=== PATIENT | female | born 1945 | race Caucasian/White ===

== ENCOUNTER 2018-05-08 02:13 | Inpatient (IN) | payer OTHER, MEDICARE ==
[~2018-05-08] VITALS: Ht 170.2 cm; Wt 112.1 kg
[~2018-05-08 02:13] MED LIST: ARTHROTEC 75 M1 EACH PO; BISACODYL10 MG PR; BYSTOLIC2.5 M1 PO; BYSTOLIC5 M1 PO; COUMADIN 4MG TAB4 MG PO; DICLOFENAC SODI75 M2 PO; DOCUSATE SODIU100 M3 PO; DOCUSATE SODIU100 MG PO; ELIQUIS2.5 M1 PO; IRON TABS PO; LEVOTHYROXINE88 MCG PO; PERCOCET 325 MG1 TA2 PO; PERCOCET 5-3251 EACH PO; PRAVACHOL20 M2 PO; PRILOSEC OTC20 M1 PO; SENNA PLUS TAB1 EACH PO; SYNTHROID88 MCG PO; TRAMADOL HCL50 M1 PO; VITAMIN C500 M7 PO
--- NOTE | 2018-05-08 09:49 | Operative Report ---
Operative/Inv Procedure Report Surgery Date: 05/08/18 Name of Procedure: Right total hip arthroplasty Pre-Operative Diagnosis: Right hip osteoarthritis, primarily Post-Operative Diagnosis: Same with the final pathology pending Estimated Blood Loss: 50ml to 100ml Surgeon/Associate Professor Of English: Lina NORTON,Marek. RADHA Camacho Anesthesia: block Implants: Independence secure fit femoral stem size 7 with a 127 neck angle 52 acetabulum 36+0 femoral head Biolox Drains: None Specimens: Femoral head and acetabular reamings Microbiology: Urine Complications: None Condition: Stable Operative Indication: Patient is a 72-year-old woman with a history of gradually worsening right hip symptoms. She was diagnosed with osteoarthritis. Treatment included medications, activity modifications and even cortisone injection. She also underwent physical therapy. Unfortunately she had increasing symptoms that interfere with normal activities of daily living. X-rays confirmed end-stage degenerative changes of the right hip. Due to ongoing symptoms that interfere with normal activities, patient wished to proceed with total hip arthroplasty. Risks benefits and expectations of the surgical procedure were discussed which included but were not limited to persistent hip pain, need for subsequent surgery, infection, DVT, injury to blood vessel or nerve, leg length discrepancy , anesthesia risks Operative/Procedure Note Note: Patient was brought to the operating room and transferred to the operating table. Once under appropriate anesthesia the patient was placed into a left lateral decubitus position with right side up. All bony prominences were well- padded. The right lower extremity was prepped and draped in standard fashion. Preoperative IV antibiotic's were given prophylactically. A standard lateral incision was made for to a superior portion of the hip. Incision was taken down sharply to the underlying fascia. The fascia was split in line with the skin incision. The hip was internally rotated placing the piriformis on tension. The piriformis is identified and reflected posteriorly. Identified the interval between the gluteus minimus tendon and the superior capsule. A retractor was placed in this interval. An inferior retractor was placed as well exposing the inferior portion of the posterior capsule. A central portion of the capsule was incised and reflected posteriorly. Superior and inferior portions of the posterior capsule were excised. Hip was dislocated. Severe degenerative changes were noted. Measurements were taken. Femoral neck cut was then made a stab preoperative templating and intraoperative findings. I then was able to visualize the acetabulum. Degenerative changes of the acetabulum were noted as well. Degenerative labrum was excised circumferentially. Retractors were placed anteriorly and inferiorly exposing the acetabulum. Remnants of the soft tissues were removed from the acetabular fossa using large curette. Copious irrigation followed. I then started reaming with a size 46 and progressed to a size 51 for an anticipated insertion of size 52 acetabular shell. After the 51 reamer, I used a size 50 trial to confirm circumferential reaming. I was satisfied with this. After copious irrigation of the acetabular fossa, I impacted the definitive size 52 acetabular shell with the appropriate anteversion and abduction based on anatomy, preoperative templating x-rays and the Quosis tower. I was satisfied with the fixation. I did apply to cancellus screws in the safe zone in standard fashion. After irrigation of the acetabular shell I inserted the definitive liner to accept a 36+0 femoral head. This was impacted in place and the locking mechanism was confirmed. A lap sponge was placed in the acetabulum to protect the polyethylene during preparation of the femur. The femur was internally rotated 90 and flexed about 60. Appropriate retractors were placed and then I used the box osteotome to lateralize my insertion site. I hand reamed up to a size 7. I broached to a size 7. I left the last broach in place which was the 7 with excellent scratch fit. I did a closed reduction with a 127 neck angle and 36+0 femoral head. I was satisfied with the sikh of the length. Excellent stability with simultaneous flexion to greater than 90, internal rotation and adduction. No evidence of posterior instability. No evidence of anterior instability with simultaneous extension and external rotation. I removed the trial components from the femur. Copious irrigation of the femoral canal followed. I then inserted a definitive size 7 secure fit femoral stem with the appropriate version matching the previously placed and removed broach. Again excellent scratch fit. The trunnion was dried and the definitive 36+0 Biolox femoral head was impacted in place and the locking mechanism was confirmed. The hip was reduced and stability was confirmed once again. Copious irrigation followed and copious irrigation followed every level of closure. Capsule was repaired as was the piriformis. Fascia was closed with interrupted #1 Vicryl sutures. Subcutaneous tissues closed with 2-0 Vicryl due to the depth of the wound in 2 layers. Skin was closed with bravo. Blood loss approximate 100 mL. No intraoperative complications. Appropriate dressings were applied and patient was awakened and taken to recovery room in good condition. Discharge Disposition: PACU
--- NOTE | 2018-05-08 11:00 | Patient Discharge Instructions ---
Discharge Instructions General Discharge Information You were seen/treated for: primary osteoarthritis right hip You had these procedures: right total hip arthroplasty Watch for these problems: Increasing pain despite the use of pain medication Increasing redness, warmth or swelling Drainage of any type from incision Inability to bear weight on operative leg Persistent nausea and vomiting Fever greater than 101.5 degrees Other wound care: Please keep wound clean and dry. No ointments or lotions of any type on or near incision. Your dressing will be changed by your nurse. Daily dry dressing changes are recommended each day thereafter. Do not soak your wound- no tub baths/swimming. You may shower, change the dressing when wet. Diet Continue normal diet: Yes Recommended Diet: Regular Activity Activity Limited to: Weight bear as tolerated Additional ACTIVITY Info: use assistive devices as needed Acute Coronary Syndrome Inclusion Criteria At DC or during hospital stay patient has or had the following: ACS DIAGNOSIS No Discharge Core Measures Meds if any: Prescribed or Continued at Discharge Meds if any: NOT Prescribed or Continued at Discharge Congestive Heart Failure Inclusion Criteria At DC or during hospital stay patient has or had the following: CHF DIAGNOSIS No Discharge Core Measures Meds if any: Prescribed or Continued at Discharge Meds if any: NOT Prescribed or Continued at Discharge Cerebrovascular accident Inclusion Criteria At DC or during hospital stay patient has or had the following: CVA/TIA Diagnosis No Discharge Core Measures Meds if any: Prescribed or Continued at Discharge Meds if any: NOT Prescribed or Continued at Discharge Venous thromboembolism Inclusion Criteria VTE Diagnosis No VTE Type NONE VTE Confirmed by (Test) NONE Discharge Core Measures - Per Current guidelines, there needs to be overlap - treatment for the first 5 days of Warfarin therapy. - If discharged on Warfarin prior to 5 days of - overlap therapy, the patient will need to be - assessed for post discharge needs including - *Post discharge parental anticoagulation - *Warfarin and/or parental anticoagulation education - *Follow up date to check INR post discharge At least 5 days overlap therapy as Inpatient No Meds if any: Prescribed or Continued at Discharge Note: Overlap Therapy is Warfarin and Anticoagulant Meds if any: NOT Prescribed or Continued at Discharge
--- NOTE | 2018-05-08 11:03 | Surgical Discharge Summary ---
Visit Information Visit Dates Admission Date: 05/08/18 Discharge Date: 05/11/18 History of Present Illness Chief Complaint: right hip pain due to osteoarthritis Medical History Cardiovascular: hypertension, hyperlipidemia Gastrointestinal: GERD Musculoskeletal: osteoarthritis Endocrine: THYROID NODULES PARTIAL THYROIDECTOMY Cancer(s): NONE History of MRSA: No History of VRE: No History of CDIFF: No Pneumonia Vaccine: 07/12/12 Influenza Vaccine: 07/12/17 Surgical History Pertinent Surgical History: knee replacement, APPY PARTIAL THYROIDECTOMY RIGHT TOTAL KNEE RIGHT BREAST BIOPSY Psychosocial History Who Do You Live With? Spouse Services at Home: None What is Your Primary Language? Slovenian Review of Systems: see H&P Hospital Course Course Attending Physician: Marek Mills MD Primary Care Physician: Marcial Mary MD Hospital Course: Patient was admitted to the hospital for an elective right total hip replacement. Procedure was tolerated well and patient was transferred to a general surgical floor. Diet was advanced and tolerated. Physical therapy performed evaluation and treatment. At time of hospital discharge, vital signs were stable, neurovascular status was intact, and pain was controlled with the use of oral pain medications. Allergies: Coded Allergies: No Known Allergies (08/02/17) Significant Procedures: 05/08/18 right total hip arthroplasty Disposition Summary Disposition Principal Diagnosis: primary osteoarthritis right hip Additional Diagnosis: same, sp right total hip arthroplasty Discharge Disposition: home health services Discharge Instructions General Discharge Information Code Status: Full Code Patient's Diet: regular Patient's Activity: wbat Follow-Up Instructions/Appts: call to schedule/confirm followup appt to be seen 2 weeks from surgery Medications at Discharge Discharge Medications: Continue taking these medications: Levothyroxine Sodium (Synthroid) 88 MCG TABLET 1 Tablet ORAL [id number] Comments: Last Taken: 08/18/17 Time: 0800 Omeprazole Magnesium (Prilosec Otc) 20 MG TABLET.DR 1 Tablet ORAL DAILY Comments: Last Taken: 08/18/17 Time: 0800 Pravastatin Sodium (Pravachol) 20 MG TABLET 1 Tablet ORAL DAILY Comments: Last Taken: 08/17/17 Time: 1700 Nebivolol HCl (Bystolic) 5 MG TABLET 1 Tablet ORAL EVERY 48 HOURS (Every 2 days) Comments: Last Taken: 08/17/17 Time: 2200 Nebivolol HCl (Bystolic) 2.5 MG TABLET 1 Tablet ORAL EVERY 48 HOURS (Every 2 days) Comments: Last Taken: 08/16/17 Time: 2200 Levothyroxine Sodium (Levothyroxine Sodium) 88 MCG TABLET 0.5 Tablet ORAL EVERY TUESDAY Comments: NOT GIVEN Diclofenac W/ Misoprostol (Arthrotec 75 MG-200 Mcg Tab) 75 MG-200 MCG TAB.IR.DR 11 Tablet ORAL TWICE DAILY Tramadol HCl (Tramadol HCl) 50 MG TABLET 1 Tablet ORAL NEEDED Ascorbic Acid (Vitamin C) 500 MG CAPSULE.ER 1 Tablet ORAL Every Day [IRON TABS] 1 TAB 1 Tablet ORAL DAILY Start taking the following new medications: Apixaban (Eliquis) 2.5 MG TABLET 2.5 Milligram ORAL TWICE DAILY Qty = 60 No Refills Oxycodone HCl/Acetaminophen (Percocet 5-325 MG Tablet) 5 MG-325 MG TABLET 1-2 Tablet ORAL EVERY 4 HOURS NEEDED as needed for PAIN Qty = 36 No Refills
--- NOTE | 2018-05-08 13:07 | RADIOLOGY REPORT ---
EXAMINATION: XR HIP, RIGHT CLINICAL INFORMATION: Right hip arthroplasty COMPARISON: None TECHNIQUE: Portable, AP view of the right hip. FINDINGS: On this single AP view of the right hip, the femoral head prosthesis is well centered within the acetabular cup, which exhibits lateral tilt of approximately 35 degrees. The acetabular cup is stabilized by a superior screw. The femoral stem is well centered within the medullary cavity of the proximal femoral diaphysis. No evidence of endosteal cortical scalloping or periprosthetic fracture. Mild postoperative soft tissue gas of the lateral hip with lateral skin bravo in place. IMPRESSION: There are expected postoperative changes from right total hip arthroplasty. No acute periprosthetic fracture or malalignment.
--- NOTE | 2018-05-08 14:55 | PN- Student ---
Landen Rodriguezley 05/08/18 1435: Subjective Subjective: Went to see the pt post-op in the PACU. At this time, she is doing well. Pain is well controlled. Only complaint is some pain in her left shoulder which is likely d/t her postioning, ice pack was in place. Pt denies any n/v. Eldridge in place, voiding. Pt is tolerating some ice chips. Pt denies any numbness/tingling in her extremities. No other complaints at this time. Objective Objective: Gen: O&Ax3, laying in bed, comfortable, in no apparent distress Lungs: CTA Heart: RRR. S1 and S2 normal. Abd: soft, nt/nd, normoactive bs LE: sensation intact bilaterally, dp 2+ bilaterally, strength 4/5 bilaterally, ALPS in place, legs are warm,dry,soft, non-tender to palpation. compression stocking in place over right leg. Results Results: Microbiology Date/Time Procedure - Status Source Growth 05/08 1050 Urine Culture - RECD URINE ROUT Orders Procedure Date/time Status Code Status 05/08 1237 Active TRANSFER ORDERS 05/08 1227 Active PATHOLOGY SPECIMEN 05/08 1108 Complete CULTURE,URINE 05/08 1107 Active Microbiology Date/Time Procedure - Status Source Growth 05/08 1050 Urine Culture - RECD URINE ROUT Orders Procedure Date/time Status Code Status 05/08 1237 Active TRANSFER ORDERS 05/08 1227 Active PATHOLOGY SPECIMEN 05/08 1108 Complete CULTURE,URINE 05/08 1107 Active Microbiology 05/08 1050 URINE ROUT: Urine Culture - RECD Assessment/Plan Assessment: This is a 72 yo female with a PMHx of htn, hyperlipidemia, multinodular goiter s /p subtotal thyroidectomy that presents today w/ right hip osteoarthritis POD 0 s/p THR, seen in PACU and is in stable condition. Plan: -Eldridge in place, voiding, will d/c tomorrow -Ambulation, WBAT w/ PT -ALPS and Eliquis 2.5 twice daily for dvt ppx -Advance diet as tolerated -C/w IV fluids -IV abx given preop -Encourage spirometer -C/w home meds -Follow up morning labs -Pain control as ordered -Dressing change POD 2 -Discharge planning Darien Deleon 05/08/18 1646: Subjective Subjective: agree with above may be oob this evening to chair wbat right le
[2018-05-08 14:59] VITALS: BP 120/76
[2018-05-08 17:00] VITALS: BP 132/64
[2018-05-08 19:00] VITALS: BP 134/74
[2018-05-08 21:00] VITALS: BP 110/72
[2018-05-09 01:08] VITALS: BP 136/68
[2018-05-09 05:00] VITALS: BP 132/74
--- NOTE | 2018-05-09 07:17 | PN- Student ---
Krysten Rodriguez 05/09/18 07: Subjective Subjective: Went to see the pt this morning and she is doing well. Her left shoulder pain has resolved. Her hip pain is well controlled. She hasn't been oob yet or seen by PT. She is tolerating a reg diet, denies n/v. Good PO intake. Khalil still in place this morning, voiding ok. No flatus/BM since tuesday morning. Pt denies cp/ sob. Pt denies any numbness/tingling in her extremities. No other complaints at this time. Objective Objective: Gen: O&Ax3, laying in bed, comfortable, in no apparent distress Lungs: CTA Heart: RRR. S1 and S2 normal. Abd: soft, nt/nd, normoactive bs LE: sensation intact bilaterally, dp 2+ bilaterally, strength 5/5 bilaterally, ALPS in place, legs are warm,dry,soft, non-tender to palpation. Dressing in place- clear/dry/no drainage. Results Results: Vital Signs Date Time Temp Pulse Resp B/P B/P Pulse O2 O2 Flow FiO2 Mean Ox Delivery Rate 05/09 0500 98.3 85 18 132/74 94 Room Air 05/09 0108 98.3 75 18 136/68 93 Room Air 05/08 2108 92 110/78 08 2100 97.5 92 16 110/72 92 Room Air 05/08 1900 97.5 79 20 134/74 97 Room Air 05/08 1700 98.0 84 16 132/64 97 Room Air 05/08 1535 95 Room Air Room Air 05/08 1459 97.6 57 18 120/76 96 Room Air Room Air Microbiology Date/Time Procedure - Status Source Growth 05/08 1050 Urine Culture - RECD URINE ROUT Orders Procedure Date/time Status CBC WITHOUT DIFFERENTIAL 05/09 600 Active BASIC ELECTROLYTES PLUS BUN&CR 05/09 600 Active Regular Diet 05/08 D Active Device(s) 05/08 1500 Active Weight 05/08 145 Complete Teach/Educate 05/08 1459 Active Pain Treatment and Response 05/08 1459 Active Nutritional Intake, Monitor 05/08 1459 Active Isolation 05/08 1459 Active Intake & Output 05/08 1459 Active Patient Care Conference 05/08 1459 Active PT Evaluate & Treat 05/08 1452 Active Saline Lock 08/06 1452 Active Pathway - chart 08/06 1452 Active Admit to inpatient 05/08 1452 Active Patient Data 05/08 1452 Active Wound Care/Dressing 05/08 1452 Active VTE Mechanical Prophylaxis 05/08 1452 Active Vital Signs 05/08 1452 Active Heat/Cold Therapy 05/08 1452 Active Khalil, Insertion/Removal/Asses 05/08 1452 Active CMS- Neurovascular Checks 05/08 145 Active Activity/Ambulation 05/08 1452 Active Code Status 05/08 1237 Active TRANSFER ORDERS 05/08 1227 Complete PATHOLOGY SPECIMEN 05/08 1108 Complete CULTURE,URINE 05/08 1107 Active MISSING MEDICATION FORM 05/08 UNK Active Microbiology 05/08 1050 URINE ROUT: Urine Culture - RECD Assessment/Plan Assessment: This is a 72 yo female with a PMHx of htn, hyperlipidemia, multinodular goiter s /p subtotal thyroidectomy that presents today w/ right hip osteoarthritis POD 1 s/p right total hip arthroplasty, seen in at bedside this morning, pt is doing well. Plan: -dc Khalil -Will be seen by PT today -Ambulation, WBAT -ALPS and Eliquis 2.5mg twice daily for dvt ppx -Tolerating reg diet -dc IV fluids -IV abx complete -C/w home meds -AM labs pending -Pain control as ordered -Dressing change POD 2 -Discharge planning Dulce Petersen 05/09/18 0747: Assessment/Plan Assessment: Agree with student assessment and plan. Will dc khalil cathter and iv fluids. Eliquis to start this am. Will discuss poc with Dr. Mills
[2018-05-09 08:37] LABS: ABSOLUTE BASOPHIL COUNT 0 /CUMM (0.0-0.2); ABSOLUTE EOSINOPHIL COUNT 0 /CUMM (0.0-0.7); ABSOLUTE MONOCYTE COUNT 1.3 /CUMM (0.10-0.60); BASOPHIL % 0 % (0.0-2.0); EOSINOPHIL % 0 % (0-5)
[2018-05-09 08:53] LABS: ABSOLUTE GRANULOCYTE CT 12.4 /CUMM (1.4-6.5); ABSOLUTE LYMPH COUNT 0.7 /CUMM (1.2-3.4); HEMATOCRIT 34.4 % (37-47); MEAN CORPUSCULAR HGB 30.2 PG (27.0-31.0); MEAN CORPUSCULAR HGB CONC 33.3 G/DL (33.0-37.0); MEAN CORPUSCULAR VOLUME 90.8 FL (81.0-99.0); MEAN PLATELET VOLUME 10.9 FL (7.4-10.4); PLATELET COUNT 156 /CUMM (130-400); RED BLOOD CELL CT 3.79 /CUMM (4.20-5.40); WHITE BLOOD CELL COUNT 14.3 /CUMM (4.8-10.8)
[2018-05-09 09:36] LABS: GRANULOCYTE % 86.2 % (42.2-75.2)
--- NOTE | 2018-05-09 10:02 | Admission Core Measures ---
Acute Coronary Syndrome (CM) ACS Core Measures Acute Coronary Syndrome Diagnosis No Congestive Heart Failure (NEW) CHF Core Measures Congestive Heart Failure Diagnosis No Cerebrovascular Accident CVA Core Measures CVA/TIA Diagnosis No Venous Thromboembolism VTE Core Ashely (View Protocol) VTE Risk Factors Surgery No Mechanical VTE Prophylaxis d/t N/A MechProphylax Ordered No VTE Pharm Prophylaxis d/t NA PharmProphylax ordered Problem List As ranked by this Provider includes Assessment & Plan 1. Primary osteoarthritis of right hip HOME MEDS Home Med List Ascorbic Acid (Vitamin C) 500 MG CAPSULE.ER 1 TAB PO D SUPPLEMENT (Reported) Diclofenac W/ Misoprostol (Arthrotec 75 MG-200 Mcg Tab) 75 MG-200 MCG TAB.IR.DR 11 TAB PO BID DISCOMFORT (Reported) [IRON TABS] 1 TAB 1 TAB PO DAILY SUPPLEMENT (Reported) Levothyroxine Sodium (Synthroid) 88 MCG TABLET 1 TAB PO MoTuWeThFrSa THYROID (Reported) Levothyroxine Sodium 88 MCG TABLET 0.5 TAB PO QSUN THYROID (Reported) Nebivolol HCl (Bystolic) 5 MG TABLET 1 TAB PO Q48 BP (Reported) Nebivolol HCl (Bystolic) 2.5 MG TABLET 1 TAB PO Q48 BP (Reported) Omeprazole Magnesium (Prilosec Otc) 20 MG TABLET.DR 1 TAB PO DAILY GI ( Reported) Pravastatin Sodium (Pravachol) 20 MG TABLET 1 TAB PO DAILY CHOLESTEROL ( Reported) Tramadol HCl 50 MG TABLET 1 TAB PO PRN PAIN (Reported)
[2018-05-09 10:30] VITALS: BP 122/80
[2018-05-09 13:21] VITALS: BP 120/60
--- NOTE | 2018-05-09 19:02 | PN- Orthopedic ---
Surgical Brief Attending Note Brief Attending Note: sore VSS calf soft NT X2 neuro intact dressing dry s/p THR right PT/home needs anticoagulation
[2018-05-09 22:17] VITALS: BP 102/60
[2018-05-10 06:20] VITALS: BP 148/80
--- NOTE | 2018-05-10 06:39 | PN- Student ---
Krysten Rodriguez 05/10/18 0637: Subjective Subjective: Went to see the pt this morning and she is doing well. Her hip pain is well controlled at rest, some slight pain when ambulating. She has been oob and evaluted twice by PT yesterday. She is tolerating a reg diet, denies n/v. Good PO intake. IV fluids and khalil were stopped yesterday, she is voiding on her own. Passed flatus, no BM since tuesday morning. Pt denies cp/sob. Pt denies any numbness/tingling in her extremities. No other complaints at this time. Objective Objective: Physical exam Gen: O&Ax3, laying in bed, comfortable, in no apparent distress Lungs: CTA Heart: RRR. S1 and S2 normal. Abd: soft, nt/nd, normoactive bs LE: sensation intact bilaterally, dp 2+ bilaterally, strength 5/5 bilaterally, ALPS in place, adductor brace in place, legs are warm,dry,soft, non-tender to palpation. Dressing in place- clear/dry/no drainage. Changed today. Results Results: Vital Signs Date Time Temp Pulse Resp B/P B/P Pulse O2 O2 Flow FiO2 Mean Ox Delivery Rate 05/09 2217 98.1 72 20 102/60 99 05/09 1321 99.0 79 20 120/60 97 Room Air 05/09 1030 98.3 96 20 122/80 97 Room Air 05/09 0500 98.3 85 18 132/74 94 Room Air 05/09 0108 98.3 75 18 136/68 93 Room Air 05/08 2108 92 110/78 08/ 2100 97.5 92 16 110/72 92 Room Air 05/08 1900 97.5 79 20 134/74 97 Room Air / 1700 98.0 84 16 132/64 97 Room Air 05/08 1535 95 Room Air Room Air 05/08 1459 97.6 57 18 120/76 96 Room Air Room Air Microbiology Date/Time Procedure - Status Source Growth 05/08 1050 Urine Culture - RES URINE ROUT Orders Procedure Date/time Status CBC WITHOUT DIFFERENTIAL 05/09 600 Complete BASIC ELECTROLYTES PLUS BUN&CR 05/09 600 Complete Therapeutic Activities 05/09 UNK Complete Therapeutic Exercise 05/09 UNK Complete PT EVAL LOW COMPLEX 20 MIN 05/09 UNK Complete Gait Training 05/09 UNK Complete Discontinue Nursing Interventi 05/09 UNK Active Regular Diet 05/08 D Active Device(s) 05/08 1500 Active Weight 05/08 145 Complete Teach/Educate 05/08 145 Active Pain Treatment and Response 05/08 145 Active Nutritional Intake, Monitor 05/08 145 Active Isolation 05/08 145 Active Intake & Output 05/08 1459 Active Patient Care Conference 05/08 145 Active PT Evaluate & Treat 05/08 145 Active Saline Lock 05/08 145 Active Pathway - chart 05/08 145 Active Admit to inpatient 05/08 145 Active Patient Data 05/08 145 Active Wound Care/Dressing 05/08 145 Active VTE Mechanical Prophylaxis 05/08 145 Active Vital Signs 05/08 145 Active Heat/Cold Therapy 05/08 145 Active Khalil, Insertion/Removal/Asses 05/08 145 Complete CMS- Neurovascular Checks 05/08 145 Active Activity/Ambulation 05/08 145 Active Code Status 05/08 1237 Active TRANSFER ORDERS 05/08 1227 Complete PATHOLOGY SPECIMEN 05/08 1108 Complete CULTURE,URINE 05/08 110 Active MISSING MEDICATION FORM 05/08 UN Active Laboratory Tests 05/09/18 0620: Anion Gap 6, Estimated GFR > 60, BUN/Creatinine Ratio 28.3 H, CBC w Diff NO MAN DIFF REQ, RBC 3.79 L, MCV 90.8, MCH 30.2, MCHC 33.3, RDW 14.0, MPV 10.9 H, Gran % 86.2 H, Lymphocytes % 4.9 L, Monocytes % 8.9, Eosinophils % 0, Basophils % 0, Absolute Granulocytes 12.4 H, Absolute Lymphocytes 0.7 L, Absolute Monocytes 1.3 H, Absolute Eosinophils 0, Absolute Basophils 0 Microbiology 05/08 1050 URINE ROUT: Urine Culture - RES Assessment/Plan Assessment: This is a 72 yo female with a PMHx of htn, hyperlipidemia, multinodular goiter s /p subtotal thyroidectomy that presents today w/ right hip osteoarthritis POD 2 s/p right total hip arthroplasty, seen in at bedside this morning, pt is doing well Plan: -No acute overnight events, Vitals wnl -Seen by PT yesterday, will work with them again today -Pt will stay one more night, likely will be ready for discharge tomorrow pending her progress today with PT and ambulation -ALPS and Eliquis 2.5mg twice daily for dvt ppx -Tolerating reg diet -No khalil, voiding well -Encourage PO intake, IS -Still no bowel movement, bowel regimen ordered- give as needed -IV abx complete -C/w home meds -Pain control as ordered -Dressing changed today -Discharge planning Dulce Petersen 05/10/18 0916: Assessment/Plan Assessment: Patient seen and examined by me. Pain under control at the present time, rating 4/10 after PT. Dressing with small strike through saturation at base of incision, taken down, wound examined, no excessive/active bleeding presently. No surrounding hematoma , thigh compartment soft. Clean dry dressing reapplied. Anticipate dc to home with [facility] tomorrow. Will discuss plan of care with Dr. Mills Will continue current pain regimen, dvt ppx, activity and diet as tolerated.
[2018-05-10 08:00] VITALS: BP 148/80
--- NOTE | 2018-05-10 12:24 | PN- Orthopedic ---
Surgical Brief Attending Note Brief Attending Note: more comfortable VSSwound clean calf soft NT neuro intact s/p THR for primary OA PT/home needs anticoagulation
[2018-05-10 14:31] VITALS: BP 116/58
[2018-05-10 22:45] VITALS: BP 112/60
[2018-05-11 06:18] VITALS: BP 136/62
--- NOTE | 2018-05-11 06:44 | PN- Student ---
Krysten Rodriguez 05/11/18 0643: Subjective Subjective: Went to see the pt this morning and she is doing well. Pain is well controlled. She has been oob and cleared by PT to go home. She is tolerating a reg diet, denies n/v. Good PO intake. Voiding ok, passed flatus and BM yesterday. Pt denies cp/sob. Pt denies any numbness/tingling in her extremities. No other complaints at this time. Objective Objective: Physical Exam: Gen: O&Ax3, laying in bed, comfortable, in no apparent distress Lungs: CTA Heart: RRR. S1 and S2 normal. Abd: soft, nt/nd, normoactive bs LE: sensation intact bilaterally, dp 2+ bilaterally, strength 5/5 bilaterally, ALPS in place, legs are warm,dry,soft, non-tender Dressing in place- with some serosangious fluid under dressing, intact. Results Results: Vital Signs Date Time Temp Pulse Resp B/P B/P Pulse O2 O2 Flow FiO2 Mean Ox Delivery Rate 05/11 0618 98.3 82 22 136/62 97 Room Air 08/08 2245 98.1 75 19 112/60 98 Room Air 08/08 2113 116/60 08/08 1431 97.8 108 18 116/58 98 Room Air 08/08 0800 98.3 60 18 148/80 97 Room Air 08/08 0620 98.3 60 18 148/80 97 Room Air 08/07 2217 98.1 72 20 102/60 99 08/07 1321 99.0 79 20 120/60 97 Room Air 08/07 1030 98.3 96 20 122/80 97 Room Air 08/07 0500 98.3 85 18 132/74 94 Room Air 08/07 0108 98.3 75 18 136/68 93 Room Air 08/06 2108 92 110/78 08/06 2100 97.5 92 16 110/72 92 Room Air 08/06 1900 97.5 79 20 134/74 97 Room Air 08/06 1700 98.0 84 16 132/64 97 Room Air 08/06 1535 95 Room Air Room Air 08/06 1459 97.6 57 18 120/76 96 Room Air Room Air Microbiology Date/Time Procedure - Status Source Growth 05/08 1050 Urine Culture - COMP URINE ROUT Orders Procedure Date/time Status Therapeutic Activities 05/10 UNK Complete Neuromuscular Re-ed 05/10 UNK Complete Gait Training 05/10 UNK Complete CBC WITHOUT DIFFERENTIAL 05/09 600 Complete BASIC ELECTROLYTES PLUS BUN&CR 05/09 600 Complete Therapeutic Activities 05/09 UNK Complete Therapeutic Exercise 05/09 UNK Complete PT EVAL LOW COMPLEX 20 MIN 05/09 UNK Complete Gait Training 05/09 UNK Complete Discontinue Nursing Interventi 05/09 UNK Active Regular Diet 05/08 D Active Device(s) 05/08 1500 Active Weight 05/08 1459 Complete Teach/Educate 05/08 145 Active Pain Treatment and Response 05/08 145 Active Nutritional Intake, Monitor 05/08 145 Active Isolation 05/08 145 Active Intake & Output 05/08 145 Active Patient Care Conference 05/08 1459 Active PT Evaluate & Treat 05/08 145 Active Saline Lock 05/08 145 Active Pathway - chart 05/08 145 Active Admit to inpatient 05/08 1452 Active Patient Data 05/08 1452 Active Wound Care/Dressing 05/08 1452 Active VTE Mechanical Prophylaxis 05/08 1452 Active Vital Signs 05/08 1452 Active Heat/Cold Therapy 05/08 1452 Active [place], Insertion/Removal/Asses 05/08 1452 Complete CMS- Neurovascular Checks 05/08 1452 Active Activity/Ambulation 05/08 1452 Active Code Status 05/08 1237 Active TRANSFER ORDERS 05/08 1227 Complete PATHOLOGY SPECIMEN 05/08 1108 Complete CULTURE,URINE 05/08 1107 Complete MISSING MEDICATION FORM 05/08 UNK Active Laboratory Tests 05/09/18 0620: Anion Gap 6, Estimated GFR > 60, BUN/Creatinine Ratio 28.3 H, CBC w Diff NO MAN DIFF REQ, RBC 3.79 L, MCV 90.8, MCH 30.2, MCHC 33.3, RDW 14.0, MPV 10.9 H, Gran % 86.2 H, Lymphocytes % 4.9 L, Monocytes % 8.9, Eosinophils % 0, Basophils % 0, Absolute Granulocytes 12.4 H, Absolute Lymphocytes 0.7 L, Absolute Monocytes 1.3 H, Absolute Eosinophils 0, Absolute Basophils 0 Microbiology 05/08 1050 URINE ROUT: Urine Culture - COMP Assessment/Plan Assessment: This is a 72 yo female with a PMHx of htn, hyperlipidemia, multinodular goiter s /p subtotal thyroidectomy and is now POD 3 s/p right total hip arthroplasty, pt is doing well and will be discharged to home today with home services. Plan: -Pt worked with PT and has been cleared to go home today -Rosalind discharge planning w/ patient -She has been oob and ambulating -ALPS and Eliquis 2.5mg twice daily for dvt ppx -Tolerating reg diet -Voiding, BM and flatus yesterday -Encourage PO intake, IS -C/w home meds -Pain control as ordered -Change dressing today Alvarado Milian 05/11/18 0718: Resident Review Statement Resident Statement: examined this patient Other Findings: Patient evaluated, agree with above, dressing with small amount of bloody drainage at the inferior aspect. This is dry. Dressing was changed, dry sterile dressing applied. Mild to moderate right lateral thigh swelling and mild tenderness. No erythema. No compartment syndrome. Hip range of motion limited with expected pain. Patient without significant complaints, feels well enough to be discharged home today. Continue Eliquis DC home today with [facility] services
[2018-05-11] MEDS ORDERED: ELIQUIS2.5 M1 PO (07:22)
[2018-05-11] MEDS ORDERED: PERCOCET 5-3251 EACH PO (07:22)
== END 2018-05-11 12:05 | disposition home health service (06) | DRG 470 ==
LOC: 2NA 02:13 → SDA 02:13 → ENRESERV 12:57 → ENTRNSPT 14:29 → EDTRNSPTSTS 14:30 → EDTRNSPT 14:30 → 2NA 14:45 → CMPTRNSPT 14:49 → ENPENDDIS 05-11 07:34 → ENTRNSPT 05-11 11:42 → EDTRNSPT 05-11 11:55 → EDTRNSPTSTS 05-11 11:55 → CMPTRNSPT 05-11 12:05 → 2NA 05-11 12:05
PROVIDERS: Physician Assistant Surgical
PROC: 0SR904A Replacement of Right Hip Joint with Ceramic on Polyethylene Synthetic Substitute, Uncemented, Open Approach (ICD-10-PCS; principal; 2018-05-08)
DX: M16.11 Unilateral primary osteoarthritis, right hip (principal); I10 Essential (primary) hypertension; E78.5 Hyperlipidemia, unspecified; E03.9 Hypothyroidism, unspecified; K21.9 Gastro-esophageal reflux disease without esophagitis; E66.9 Obesity, unspecified; Z68.38 Body mass index [BMI] 38.0-38.9, adult
CPT/HCPCS: 2NAP; 36592; 73501; 82436; 87086; 88304; 97110-GO; 97112-GO; 97116-GO; 97161-GP; 97530-GO; C1713; J1100; J2405; J3370; J7040